=== PATIENT | male | born 1955 | race Caucasian/White ===

== ENCOUNTER → 2023-09-10 | Emergency (ER) | payer SELFPAY ==
[~2023-09-10] VITALS: Ht 172.7 cm; Wt 75.0 kg
[~2023-09-10] MED LIST: IBUP-2029 MT
[2023-09-10 12:57] VITALS: O2SAT 97
[2023-09-10 14:55] VITALS: BP 120/84; PULSE 96; RESP 20; TEMP 98
== END ==
LOC: ER 13:13
DX: M25.532 Pain in left wrist (principal)
CPT/HCPCS: 73110; 82962; 99283

== ENCOUNTER 2023-09-18 11:26 | Emergency (ER) | payer SELFPAY ==
[~2023-09-18] VITALS: Ht 172.7 cm; Wt 90.0 kg
[2023-09-18 11:33] VITALS: BP 175/80; PULSE 96; RESP 20; TEMP 98.2; O2SAT 98
[2023-09-18] MEDS ORDERED: ACETAMINOPHEN 325MG TABLET PO ONE (12:15)
[2023-09-18] MEDS ORDERED: ACET-2708 MT (16:12)
== END 2023-09-18 12:19 | disposition home or self-care (01) ==
LOC: ER 11:26
DX: S60.212A Contusion of left wrist, initial encounter (principal); Y08.89XA Assault by other specified means, initial encounter; Y93.89 Activity, other specified; Y92.89 Other specified places as the place of occurrence of the external cause; Y99.8 Other external cause status
CPT/HCPCS: 29125; 73110; 73130; 99284